=== PATIENT | female | born 1960 | race Caucasian/White ===

== ENCOUNTER → 2017-10-05 11:07 | Outpatient (POV) | payer BC, SELFPAY ==
[2017-10-05 11:45] VITALS: BP 189/82; PULSE 94; RESP 20; O2SAT 98; BMI 36.5
--- NOTE | 2017-10-05 12:36 | HMH.PAINSOAP ---
[facility] Pain Management SOAP Note Subjective:: Pleasant 87-year-old white female who are treating for chronic pain syndrome. Patient is currently medically managed with methadone 10 mg 2 pills twice a day. Patient reports pain medicine does decrease her pain up to 50-60%. Patient denies any side effects. Patient has recently had an EKG at [place] that was normal she states. Patient wanted to discuss the wean of her medications. Patient starts rehabilitation with her prosthetic leg today. Patient is currently on 100 mg gabapentin 3 times a day. From her primary care provider. She is also insulin-dependent diabetic. Patient's pain is secondary to degenerative disc disease and postlaminectomy of the lumbar spine. Patient's UDS is appropriate. Patient's Jeffrey#[id number] reviewed and appropriate. ROS General: no recent weight change, no fever, no sleep disturbances Respiratory: no cough, no shortness of air, no recurring pulmonary infections Cardiovascular/Peripheral Vascular: No chest pain, No palpitations, no edema, no shortness of breath. Gastrointestinal: no incontinence, normal bowel movements reported Genitourinary: no incontinence Musculoskeletal: Low back pain, bilateral leg pain Psychiatric: normal mood/ affect Neurological: Balance issues, weakness in right extremity, decreased sensation right leg Objective:: Physical Exam General: Alert and oriented x3, no acute distress, pleasant and cooperative, [on room air] Lungs: Resps E/U, Symmetrical chest expansion Musculoskeletal: Flexion and extension of lumbar spine somewhat guarded secondary to pain, deep tendon reflexes normal, strength in upper and lower extremities [5/5], abnormal gait noted due to left leg amputation Neurological: speech clear, maintenance director equal, and station that noted on the right lower limb Assessment:: postlaminectomy syndrome of lumbar spine, left leg amputation, degenerative disc disease lumbar spine Plan:: I discussed with Dr. Hernandez regarding patient's refills he has reviewed the chart and agrees. We will refill this patient methadone 10 mg 2 tabs p.o. twice daily give her 2 months worth. We will also take over her gabapentin and start her at 300 mg 1 p.o. 3 times daily. Jeffrey #[id number] were reviewed and appropriate. Patient's UDS appropriate. He has also had a pill count recently that was appropriate. Discussed with the patient the need for her to bring in her EKG for us to review. She understands. Follow-up with this patient in 3 months and she can hot die picker 1 in prescription in the interim. Patient has been prescribed a controlled substance after being counseled on the medication, medication safety, and possible side effects. JEFFREY report has been obtained and reviewed prior to prescription and found to be appropriate. Opioid contract was reviewed and signed by the patient, and that they have agreed to all of the terms set forth by our compliance program. This note was dictated using voice recognition software and may contain errors or omissions
--- NOTE | 2017-10-05 12:54 | P.CONS_ITS ---
[facility] Pain Management SOAP Note Subjective:: Pleasant 87-year-old white female who are treating for chronic pain syndrome. Patient is currently medically managed with methadone 10 mg 2 pills twice a day. Patient reports pain medicine does decrease her pain up to 50-60%. Patient denies any side effects. Patient has recently had an EKG at [place] that was normal she states. Patient wanted to discuss the wean of her medications. Patient starts rehabilitation with her prosthetic leg today. Patient is currently on 100 mg gabapentin 3 times a day. From her primary care provider. She is also insulin-dependent diabetic. Patient's pain is secondary to degenerative disc disease and postlaminectomy of the lumbar spine. Patient' s UDS is appropriate. Patient's Jeffrey#[id number] reviewed and appropriate. ROS General: no recent weight change, no fever, no sleep disturbances Respiratory: no cough, no shortness of air, no recurring pulmonary infections Cardiovascular/Peripheral Vascular: No chest pain, No palpitations, no edema, no shortness of breath. Gastrointestinal: no incontinence, normal bowel movements reported Genitourinary: no incontinence Musculoskeletal: Low back pain, bilateral leg pain Psychiatric: normal mood/ affect Neurological: Balance issues, weakness in right extremity, decreased sensation right leg Objective:: Physical Exam General: Alert and oriented x3, no acute distress, pleasant and cooperative, [ on room air] Lungs: Resps E/U, Symmetrical chest expansion Musculoskeletal: Flexion and extension of lumbar spine somewhat guarded secondary to pain, deep tendon reflexes normal, strength in upper and lower extremities [5/5], abnormal gait noted due to left leg amputation Neurological: speech clear, food stylist equal, and station that noted on the right lower limb Assessment:: postlaminectomy syndrome of lumbar spine, left leg amputation, degenerative disc disease lumbar spine Plan:: I discussed with Dr. Hernandez regarding patient's refills he has reviewed the chart and agrees. We will refill this patient methadone 10 mg 2 tabs p.o. twice daily give her 2 months worth. We will also take over her gabapentin and start her at 300 mg 1 p.o. 3 times daily. Jeffrey #[id number] were reviewed and appropriate. Patient's UDS appropriate. He has also had a pill count recently that was appropriate. Discussed with the patient the need for her to bring in her EKG for us to review. She understands. Follow-up with this patient in 3 months and she can picker tender helper 1 in prescription in the interim. Patient has been prescribed a controlled substance after being counseled on the medication, medication safety, and possible side effects. JEFFREY report has been obtained and reviewed prior to prescription and found to be appropriate. Opioid contract was reviewed and signed by the patient, and that they have agreed to all of the terms set forth by our compliance program. This note was dictated using voice recognition software and may contain errors or omissions
[2017-10-05 13:22] LABS: Amphetamine/Metha Screen,Urine Negative ng/mL (<1000); Barbiturates Screen,Urine Negative ng/mL (<200); Benzodiazepines Screen,Urine Negative ng/mL (200); Cannabinoid Screen,Urine Negative ng/mL (<50); Cocaine Screen,Urine Negative ng/g (<300); Methadone Screen,Urine Positive ng/mL (<300); Opiate Screen,Urine Negative ng/mL (<300); Phencyclidine Screen,Urine Negative ng/mL (<25)
--- NOTE | 2017-10-05 15:13 | PC.PHONENOTE ---
Addendum entered by Esperanza Reddy RN 10/05/17 15:20: 2 additional refills called in at this time Original Note: Rx for Gabapenting 300mg 1 tab PO TID phoned into pt pharmacy per proider order.
[2017-10-08 11:19] LABS: Opiates Negative (Cutoff=100)
--- NOTE | 2017-11-12 09:48 | PC.PHONENOTE ---
pt contacted the office to notify staff that she was released from the ER in [place] this morning after being diagnosed with a kidney stone. states that the ER physician wrote her a prescription for Percocet
== END ==
PROVIDERS: Family Provider Internal Medicine; PCP Internal Medicine; Visit Provider Clinical Nurse Specialist Family Health
DX: M96.1 Postlaminectomy syndrome, not elsewhere classified (principal)
CPT/HCPCS: 99212; 80305; 80361; 80365; G0480

== ENCOUNTER → 2017-12-08 09:38 | Outpatient (POV) | payer BC, SELFPAY ==
[2017-12-08 09:53] VITALS: BP 132/85; PULSE 87; RESP 18; TEMP 36.7; O2SAT 98; BMI 30.2
--- NOTE | 2017-12-08 10:16 | HMH.PAINSOAP ---
[facility] Pain Management SOAP Note Subjective:: Patient is a pleasant 57-year-old white female who we are treating for chronic pain syndrome. Patient currently being medically managed with methadone 10 mg 2 pills 2 times a day. Patient reports pain medicine does decrease her pain 50-60%. Patient denies any side effects. Patient has had a recent EKG prior to kidney stent. Patient states that this was normal. Patient patient has leg amputation. At last visit we discussed gabapentin 300 mg 1 p.o. 3 times daily. Patient had refills from her last provider and filled out instead. Patient is insulin-dependent diabetic. Patient's JEFFREY #[id number] reviewed. Patient has received medications from urologist. Patient was reminded that she needed to call our office every time that this occurs. I discussed with the patient the risks of taking additional medication on top of her current medication. ROS General: no recent weight change, no fever, no sleep disturbances Respiratory: no cough, no shortness of air, no recurring pulmonary infections Cardiovascular/Peripheral Vascular: No chest pain, No palpitations, no edema, no shortness of breath. Gastrointestinal: no incontinence, normal bowel movements reported Genitourinary: Urinary retention Musculoskeletal: Low back pain, bilateral leg pain Psychiatric: normal mood/ affect,, Neurological: Balance is not issues, weakness in right extremity, decreased sensation in right leg Objective:: Physical Exam General: Alert and oriented x3, no acute distress, pleasant and cooperative, [on room air] Lungs: Resps E/U, Symmetrical chest expansion Eyes: PERRL Musculoskeletal: Flexion and extension of [lumbar] spine somewhat guarded secondary to pain, deep tendon reflexes normal, strength in upper and lower extremities [5/5], and normal gait noted due to left leg amputation Neurological: speech clear, bookseamer blindstitch equal, Assessment:: Postlaminectomy syndrome of lumbar spine, left leg amputation, degenerative disc disease of the lumbar spine Plan:: We will refill the patient's medications methadone 10 mg 2 tabs p.o. twice daily and give HER-2 months worth of medications. We will also take over her gabapentin and start her at 300 mg 1 p.o. 3 times daily. Patient's JEFFREY is reviewed patient's urine drug screen has been appropriate in the past. Patient also has had a recent pill count that was correct. Dr. Hernandez has reviewed her chart and agrees with this plan of care. I will follow-up with this patient in 3 months. Patient has been prescribed a controlled substance after being counseled on the medication, medication safety, and possible side effects. JEFFREY report has been obtained and reviewed prior to prescription and found to be appropriate. Opioid contract was reviewed and signed by the patient, and that they have agreed to all of the terms set forth by our compliance program. This note was dictated using voice recognition software and may contain errors or omissions
--- NOTE | 2017-12-08 10:19 | P.CONS_ITS ---
[facility] Pain Management SOAP Note Subjective:: Patient is a pleasant 57-year-old white female who we are treating for chronic pain syndrome. Patient currently being medically managed with methadone 10 mg 2 pills 2 times a day. Patient reports pain medicine does decrease her pain 50- 60%. Patient denies any side effects. Patient has had a recent EKG prior to kidney stent. Patient states that this was normal. Patient patient has leg amputation. At last visit we discussed gabapentin 300 mg 1 p.o. 3 times daily. Patient had refills from her last provider and filled out instead. Patient is insulin-dependent diabetic. Patient's JEFFREY #[id number] reviewed. Patient has received medications from urologist. Patient was reminded that she needed to call our office every time that this occurs. I discussed with the patient the risks of taking additional medication on top of her current medication. ROS General: no recent weight change, no fever, no sleep disturbances Respiratory: no cough, no shortness of air, no recurring pulmonary infections Cardiovascular/Peripheral Vascular: No chest pain, No palpitations, no edema, no shortness of breath. Gastrointestinal: no incontinence, normal bowel movements reported Genitourinary: Urinary retention Musculoskeletal: Low back pain, bilateral leg pain Psychiatric: normal mood/ affect,, Neurological: Balance is not issues, weakness in right extremity, decreased sensation in right leg Objective:: Physical Exam General: Alert and oriented x3, no acute distress, pleasant and cooperative, [ on room air] Lungs: Resps E/U, Symmetrical chest expansion Eyes: PERRL Musculoskeletal: Flexion and extension of [lumbar] spine somewhat guarded secondary to pain, deep tendon reflexes normal, strength in upper and lower extremities [5/5], and normal gait noted due to left leg amputation Neurological: speech clear, surgical dressing maker equal, Assessment:: Postlaminectomy syndrome of lumbar spine, left leg amputation, degenerative disc disease of the lumbar spine Plan:: We will refill the patient's medications methadone 10 mg 2 tabs p.o. twice daily and give HER-2 months worth of medications. We will also take over her gabapentin and start her at 300 mg 1 p.o. 3 times daily. Patient's JEFFREY is reviewed patient's urine drug screen has been appropriate in the past. Patient also has had a recent pill count that was correct. Dr. Hernandez has reviewed her chart and agrees with this plan of care. I will follow-up with this patient in 3 months. Patient has been prescribed a controlled substance after being counseled on the medication, medication safety, and possible side effects. JEFFREY report has been obtained and reviewed prior to prescription and found to be appropriate. Opioid contract was reviewed and signed by the patient, and that they have agreed to all of the terms set forth by our compliance program. This note was dictated using voice recognition software and may contain errors or omissions
[2017-12-08 11:28] LABS: Amphetamine/Metha Screen,Urine Negative ng/mL (<1000); Barbiturates Screen,Urine Negative ng/mL (<200); Benzodiazepines Screen,Urine Negative ng/mL (200); Cannabinoid Screen,Urine Negative ng/mL (<50); Cocaine Screen,Urine Negative ng/g (<300); Methadone Screen,Urine Positive ng/mL (<300); Opiate Screen,Urine Negative ng/mL (<300); Phencyclidine Screen,Urine Negative ng/mL (<25)
[2017-12-17 14:45] LABS: Opiates Negative (Cutoff=100)
== END ==
PROVIDERS: Family Provider Internal Medicine; PCP Internal Medicine; Visit Provider Clinical Nurse Specialist Family Health
DX: G89.4 Chronic pain syndrome (principal); M51.36 Other intervertebral disc degeneration, lumbar region; Z79.899 Other long term (current) drug therapy
CPT/HCPCS: 80305; 80361; 80365; 99212; G0480

== ENCOUNTER → 2018-03-08 13:34 | Outpatient (POV) | payer BC, SELFPAY ==
[2018-03-08 13:52] VITALS: BP 149/82; PULSE 8; RESP 18; O2SAT 98; BMI 34.9
--- NOTE | 2018-03-08 14:06 | HMH.PAINSOAP ---
[facility] Pain Management SOAP Note Subjective:: Patient is a pleasant 57-year-old white female who presents today for medication refills. Patient is currently being medically managed with methadone 10 mg 2 tabs 2 times a day. Patient reports that the pain medication decreases her pain up to 70%. She denies any side effects. Patient has had a recent normal EKG. Patient was on gabapentin from her primary care physician however she is stopped taking this due to side effects. Patient is an insulin dependent diabetic. Patient Kaspar #[id number] reviewed and appropriate. Patient's UDS has been appropriate in the past. Patient continually has kidney stones. Patient is under the care of a urologist. She rates her pain a 7 out of 10 today. ROS General: no recent weight change, no fever, no sleep disturbances Respiratory: no cough, no shortness of air, no recurring pulmonary infections Cardiovascular/Peripheral Vascular: No chest pain, No palpitations, no edema, no shortness of breath. Gastrointestinal: no incontinence, normal bowel movements reported Genitourinary: no incontinence Musculoskeletal: Low back pain, bilateral leg pain Psychiatric: normal mood/ affect Neurological: [denies weakness in extremities], [denies balance issues] Objective:: Physical Exam General: Alert and oriented x3, no acute distress, pleasant and cooperative, on room air Lungs: Resps E/U, Symmetrical chest expansion, Eyes: PERRL Musculoskeletal: Flexion and extension of lumbar spine somewhat guarded secondary to pain, deep tendon reflexes normal, strength in upper and lower extremities [5/5], abnormal gait noted due to left leg amputation Neurological: speech clear, vinyl cutter equal, no gross sensory deficits Assessment:: Postlaminectomy syndrome of the lumbar spine, left leg amputation, degenerative disc disease of the lumbar spine Plan:: We will refill the patient's medication methadone 10 mg 2 caps p.o. twice daily. We will give her 2 months worth of medication. Patient's JEFFREY reviewed patient's urine drug screen has been appropriate in the past. Dr. Hernandez has reviewed her chart and agrees with this plan of care. We will continue to monitor compliance. Patient has had appropriate pill counts. We will follow-up with the patient in 3 months she can pickle water pump operator her third month in the interim. Patient has been prescribed a controlled substance after being counseled on the medication, medication safety, and possible side effects. JEFFREY report has been obtained and reviewed prior to prescription and found to be appropriate. Opioid contract was reviewed and signed by the patient, and that they have agreed to all of the terms set forth by our compliance program. This note was dictated using voice recognition software and may contain errors or omissions
--- NOTE | 2018-03-08 14:09 | P.CONS_ITS ---
[facility] Pain Management SOAP Note Subjective:: Patient is a pleasant 57-year-old white female who presents today for medication refills. Patient is currently being medically managed with methadone 10 mg 2 tabs 2 times a day. Patient reports that the pain medication decreases her pain up to 70%. She denies any side effects. Patient has had a recent normal EKG. Patient was on gabapentin from her primary care physician however she is stopped taking this due to side effects. Patient is an insulin dependent diabetic. Patient Kaspar #[id number] reviewed and appropriate. Patient 's UDS has been appropriate in the past. Patient continually has kidney stones. Patient is under the care of a urologist. She rates her pain a 7 out of 10 today. ROS General: no recent weight change, no fever, no sleep disturbances Respiratory: no cough, no shortness of air, no recurring pulmonary infections Cardiovascular/Peripheral Vascular: No chest pain, No palpitations, no edema, no shortness of breath. Gastrointestinal: no incontinence, normal bowel movements reported Genitourinary: no incontinence Musculoskeletal: Low back pain, bilateral leg pain Psychiatric: normal mood/ affect Neurological: [denies weakness in extremities], [denies balance issues] Objective:: Physical Exam General: Alert and oriented x3, no acute distress, pleasant and cooperative, on room air Lungs: Resps E/U, Symmetrical chest expansion, Eyes: PERRL Musculoskeletal: Flexion and extension of lumbar spine somewhat guarded secondary to pain, deep tendon reflexes normal, strength in upper and lower extremities [5/5], abnormal gait noted due to left leg amputation Neurological: speech clear, chief of service equal, no gross sensory deficits Assessment:: Postlaminectomy syndrome of the lumbar spine, left leg amputation, degenerative disc disease of the lumbar spine Plan:: We will refill the patient's medication methadone 10 mg 2 caps p.o. twice daily. We will give her 2 months worth of medication. Patient's JEFFREY reviewed patient's urine drug screen has been appropriate in the past. Dr. Hernandez has reviewed her chart and agrees with this plan of care. We will continue to monitor compliance. Patient has had appropriate pill counts. We will follow- up with the patient in 3 months she can picker her third month in the interim. Patient has been prescribed a controlled substance after being counseled on the medication, medication safety, and possible side effects. JEFFREY report has been obtained and reviewed prior to prescription and found to be appropriate. Opioid contract was reviewed and signed by the patient, and that they have agreed to all of the terms set forth by our compliance program. This note was dictated using voice recognition software and may contain errors or omissions
== END ==
PROVIDERS: Family Provider Internal Medicine; PCP Internal Medicine; Visit Provider Clinical Nurse Specialist Family Health
DX: M96.1 Postlaminectomy syndrome, not elsewhere classified (principal)
CPT/HCPCS: 99212

== ENCOUNTER → 2018-06-07 13:50 | Outpatient (POV) | payer BC, SELFPAY ==
[2018-06-07 14:34] VITALS: BP 157/76; PULSE 83; RESP 18; O2SAT 98; BMI 34.9
[2018-06-07 14:42] LABS: Amphetamine/Metha Screen,Urine Negative ng/mL (<1000); Barbiturates Screen,Urine Negative ng/mL (<200); Benzodiazepines Screen,Urine Negative ng/mL (<200); Cannabinoid Screen,Urine Negative ng/mL (<50); Cocaine Screen,Urine Negative ng/mL (<300); Methadone Screen,Urine Positive ng/mL (<300); Opiate Screen,Urine Negative ng/mL (<300); Phencyclidine Screen,Urine Negative ng/mL (<25)
--- NOTE | 2018-06-07 14:46 | HMH.PAINSOAP ---
[facility] Pain Management SOAP Note Subjective:: Patient is a pleasant 57-year-old white female who presents today for medication refills. Patient is currently being medically managed with methadone 10 mg 2 tabs 2 times a day. Patient did 50 side effects to the medication and states that it decreases her pain up to 70%. Patient's JEFFREY #[id number] reviewed and appropriate. Patient is under the care of a urologist. She rates her pain a 7 out of 10. Patient states that she cannot sleep well at night. Patient has not tried Lyrica. Patient is unable to take gabapentin and amitriptyline due to side effects. ROS General: no recent weight change, no fever, no sleep disturbances Respiratory: no cough, no shortness of air, no recurring pulmonary infections Cardiovascular/Peripheral Vascular: No chest pain, No palpitations, no edema, no shortness of breath. Gastrointestinal: no incontinence, normal bowel movements reported Genitourinary: no incontinence Musculoskeletal: Back pain Psychiatric: normal mood/ affect Neurological: [denies weakness in extremities], [denies balance issues] Objective:: Physical Exam General: Alert and oriented x3, no acute distress, pleasant and cooperative, [on room air] Lungs: Resps E/U, Symmetrical chest expansion, Eyes: PERRL Musculoskeletal: Flexion and extension of lumbar spine somewhat guarded secondary to pain, deep tendon reflexes normal, strength in upper and lower extremities [5/5], abnormal gait noted due to left amputation Neurological: speech clear, repair electric motor assembler equal, no gross sensory deficits Assessment:: Postlaminectomy syndrome of the lumbar spine, left leg amputation, degenerative disc disease lumbar spine Plan:: We will refill the patient's medication methadone 10 mg 2 caps p.o. twice daily we will give HER-2 months worth of the medication and she can picker and packer the third month in the interim. We will start her on Lyrica 75 mg at nighttime and see if this helps with her sleeping. I will follow-up with the patient in [address] Hernandez is reviewed this chart and agrees with this plan of care. Patient has been prescribed a controlled substance after being counseled on the medication, medication safety, and possible side effects. JEFFREY report has been obtained and reviewed prior to prescription and found to be appropriate. Opioid contract was reviewed and signed by the patient, and that they have agreed to all of the terms set forth by our compliance program. This note was dictated using voice recognition software and may contain errors or omissions
--- NOTE | 2018-06-07 14:50 | P.CONS_ITS ---
[facility] Pain Management SOAP Note Subjective:: Patient is a pleasant 57-year-old white female who presents today for medication refills. Patient is currently being medically managed with methadone 10 mg 2 tabs 2 times a day. Patient did 50 side effects to the medication and states that it decreases her pain up to 70%. Patient's JEFFREY #[id number] reviewed and appropriate. Patient is under the care of a urologist. She rates her pain a 7 out of 10. Patient states that she cannot sleep well at night. Patient has not tried Lyrica. Patient is unable to take gabapentin and amitriptyline due to side effects. ROS General: no recent weight change, no fever, no sleep disturbances Respiratory: no cough, no shortness of air, no recurring pulmonary infections Cardiovascular/Peripheral Vascular: No chest pain, No palpitations, no edema, no shortness of breath. Gastrointestinal: no incontinence, normal bowel movements reported Genitourinary: no incontinence Musculoskeletal: Back pain Psychiatric: normal mood/ affect Neurological: [denies weakness in extremities], [denies balance issues] Objective:: Physical Exam General: Alert and oriented x3, no acute distress, pleasant and cooperative, [on room air] Lungs: Resps E/U, Symmetrical chest expansion, Eyes: PERRL Musculoskeletal: Flexion and extension of lumbar spine somewhat guarded secondary to pain, deep tendon reflexes normal, strength in upper and lower extremities [5/5], abnormal gait noted due to left amputation Neurological: speech clear, security shift supervisor equal, no gross sensory deficits Assessment:: Postlaminectomy syndrome of the lumbar spine, left leg amputation, degenerative disc disease lumbar spine Plan:: We will refill the patient's medication methadone 10 mg 2 caps p.o. twice daily we will give HER-2 months worth of the medication and she can forklift picker the third month in the interim. We will start her on Lyrica 75 mg at nighttime and see if this helps with her sleeping. I will follow-up with the patient in [address] Hernandez is reviewed this chart and agrees with this plan of care. Patient has been prescribed a controlled substance after being counseled on the medication, medication safety, and possible side effects. JEFFREY report has been obtained and reviewed prior to prescription and found to be appropriate. Opioid contract was reviewed and signed by the patient, and that they have agreed to all of the terms set forth by our compliance program. This note was dictated using voice recognition software and may contain errors or omissions
[2018-06-13 17:18] LABS: Opiates Negative (Cutoff=100)
== END ==
PROVIDERS: Family Provider Internal Medicine; PCP Internal Medicine; Visit Provider Clinical Nurse Specialist Family Health
DX: M96.1 Postlaminectomy syndrome, not elsewhere classified (principal); M51.36 Other intervertebral disc degeneration, lumbar region; Z89.612 Acquired absence of left leg above knee
CPT/HCPCS: 80305; 80361; 80365; 99213; G0480

== ENCOUNTER → 2018-07-26 15:08 | Outpatient (POV) | payer BC, SELFPAY ==
[2018-07-26 15:30] VITALS: BP 159/83; PULSE 83; RESP 18; O2SAT 99; BMI 34.2
--- NOTE | 2018-07-26 15:39 | HMH.PAINSOAP ---
[facility] Pain Management SOAP Note Subjective:: She is a pleasant 58-year-old white female who presents today for follow-up after right shoulder injection. Patient states it did help her somewhat however she still having quite a bit of shoulder pain given the fact that she has to wheel her wheelchair around. Patient is being treated for pain secondary to postlaminectomy syndrome of the lumbar spine, left leg amputation with post amputation pain and degenerative disc disease lumbar spine. Patient is currently being medically managed with methadone 10 mg 2 tabs twice daily. Patient denies side effects. Jeffrey reviewed and appropriate. ROS General: no recent weight change, no fever, no sleep disturbances Respiratory: no cough, no shortness of air, no recurring pulmonary infections Cardiovascular/Peripheral Vascular: No chest pain, No palpitations, no edema, no shortness of breath. Gastrointestinal: no incontinence, normal bowel movements reported Genitourinary: no incontinence Musculoskeletal: Back pain, shoulder pain Psychiatric: normal mood/ affect Neurological: [denies weakness in extremities], [denies balance issues] Objective:: Physical Exam General: Alert and oriented x3, no acute distress, pleasant and cooperative, [on room air] Lungs: Resps E/U, Symmetrical chest expansion, Eyes: PERRL Musculoskeletal: Flexion and extension of lumbar spine somewhat guarded secondary to pain, deep tendon reflexes normal, strength in upper and lower extremities [5/5], abnormal gait noted due to left leg amputation Neurological: speech clear, process consultant equal, no gross sensory deficits Assessment:: Postlaminectomy syndrome of the lumbar spine, left leg amputation, degenerative disc disease lumbar spine, shoulder pain Plan:: We will refill the patient's methadone 10 mg 2 tablets p.o. twice daily give her 2 months worth of prescriptions. We will see her back in 2 months. [facility]. I will follow-up with her in 2 months. Patient's been instructed to call the office if she has any issues prior to her next appointment. Dr. Hernandez is reviewed this chart and agrees with this plan of care. Patient has been prescribed a controlled substance after being counseled on the medication, medication safety, and possible side effects. JEFFREY report has been obtained and reviewed prior to prescription and found to be appropriate. Opioid contract was reviewed and signed by the patient, and that they have agreed to all of the terms set forth by our compliance program. This note was dictated using voice recognition software and may contain errors or omissions
--- NOTE | 2018-07-26 15:43 | P.CONS_ITS ---
[facility] Pain Management SOAP Note Subjective:: She is a pleasant 58-year-old white female who presents today for follow-up after right shoulder injection. Patient states it did help her somewhat however she still having quite a bit of shoulder pain given the fact that she has to wheel her wheelchair around. Patient is being treated for pain secondary to postlaminectomy syndrome of the lumbar spine, left leg amputation with post amputation pain and degenerative disc disease lumbar spine. Patient is currently being medically managed with methadone 10 mg 2 tabs twice daily. Patient denies side effects. Jeffrey reviewed and appropriate. ROS General: no recent weight change, no fever, no sleep disturbances Respiratory: no cough, no shortness of air, no recurring pulmonary infections Cardiovascular/Peripheral Vascular: No chest pain, No palpitations, no edema, no shortness of breath. Gastrointestinal: no incontinence, normal bowel movements reported Genitourinary: no incontinence Musculoskeletal: Back pain, shoulder pain Psychiatric: normal mood/ affect Neurological: [denies weakness in extremities], [denies balance issues] Objective:: Physical Exam General: Alert and oriented x3, no acute distress, pleasant and cooperative, [on room air] Lungs: Resps E/U, Symmetrical chest expansion, Eyes: PERRL Musculoskeletal: Flexion and extension of lumbar spine somewhat guarded secondary to pain, deep tendon reflexes normal, strength in upper and lower extremities [5/5], abnormal gait noted due to left leg amputation Neurological: speech clear, gospel singer equal, no gross sensory deficits Assessment:: Postlaminectomy syndrome of the lumbar spine, left leg amputation, degenerative disc disease lumbar spine, shoulder pain Plan:: We will refill the patient's methadone 10 mg 2 tablets p.o. twice daily give her 2 months worth of prescriptions. We will see her back in 2 months. We will also call in [facility] for her shoulder pain. I will follow-up with her in 2 months. Patient's been instructed to call the office if she has any issues prior to her next appointment. Dr. Hernandez is reviewed this chart and agrees with this plan of care. Patient has been prescribed a controlled substance after being counseled on the medication, medication safety, and possible side effects. JEFFREY report has been obtained and reviewed prior to prescription and found to be appropriate. Opioid contract was reviewed and signed by the patient, and that they have agreed to all of the terms set forth by our compliance program. This note was dictated using voice recognition software and may contain errors or omissions
== END ==
PROVIDERS: PCP Nurse Practitioner Family; Visit Provider Clinical Nurse Specialist Family Health
DX: M96.1 Postlaminectomy syndrome, not elsewhere classified (principal); M51.36 Other intervertebral disc degeneration, lumbar region; M25.519 Pain in unspecified shoulder; Z89.612 Acquired absence of left leg above knee
CPT/HCPCS: 99213

== ENCOUNTER → 2018-11-08 13:41 | Outpatient (POV) | payer BC, SELFPAY ==
[2018-11-08 13:51] VITALS: BP 166/89; PULSE 86; RESP 18; O2SAT 98; BMI 35.7
[2018-11-08 15:22] LABS: Amphetamine/Metha Screen,Urine Negative ng/mL (<1000); Barbiturates Screen,Urine Negative ng/mL (<200); Benzodiazepines Screen,Urine Negative ng/mL (<200); Cannabinoid Screen,Urine Negative ng/mL (<50); Cocaine Screen,Urine Negative ng/mL (<300); Methadone Screen,Urine Positive ng/mL (<300); Opiate Screen,Urine Negative ng/mL (<300); Phencyclidine Screen,Urine Negative ng/mL (<25)
--- NOTE | 2018-11-09 08:33 | HMH.PAINSOAP ---
[facility] Pain Management SOAP Note Subjective:: Is a pleasant 58-year-old white female who presents today for follow-up and medication refills. Patient has recently been diagnosed with liver cancer. Patient is going to have radioactive pellets put in around her liver to help shrink the tumor in order to be put on a liver transplant list. Patient is being treated for pain secondary to postlaminectomy syndrome of the lumbar spine, left leg amputation with post amputation pain and degenerative disc disease lumbar spine along with liver cancer. She rates her pain today a 7 out of 10. Patient is currently being medically managed with methadone 10 mg 2 tabs p.o. twice daily. She denies side effects Jeffrey's reviewed and appropriate. Urine drug screens have been appropriate ROS General: no recent weight change, no fever, no sleep disturbances Respiratory: no cough, no shortness of air, no recurring pulmonary infections Cardiovascular/Peripheral Vascular: No chest pain, No palpitations, no edema, no shortness of breath. Gastrointestinal: no incontinence, normal bowel movements reported Genitourinary: no incontinence Musculoskeletal: Back pain, abdominal pain Psychiatric: normal mood/ affect, Neurological: [denies weakness in extremities], [denies balance issues] Objective:: Physical Exam General: Alert and oriented x3, no acute distress, pleasant and cooperative, [on room air] Lungs: Resps E/U, Symmetrical chest expansion, Eyes: PERRL Musculoskeletal: Flexion and extension of lumbar spine somewhat guarded secondary to pain, deep tendon reflexes normal, strength in upper and lower extremities [5/5], abnormal gait due to left leg amputation abdominal tender to palpation Neurological: speech clear, powerhouse laborer equal, no gross sensory deficits Assessment:: Postlaminectomy syndrome of the lumbar spine, left leg amputation, degenerative disc disease lumbar spine, liver cancer Plan:: We will refill the patient's methadone 10 mg 2 tabs p.o. twice daily. We will give her 2 months worth of prescriptions and we will see her back in 3 months and reassess her symptoms at that time. She can chart picker one prescription in the interim she is been instructed to call the office if she has any issues or increasing pain with chemo treatment. Patient also asked about medications from other providers during procedures. I just told her to call the office and let us know so we can document it. Patient has been prescribed a controlled substance after being counseled on the medication, medication safety, and possible side effects. JEFFREY report has been obtained and reviewed prior to prescription and found to be appropriate. Opioid contract was reviewed and signed by the patient, and that they have agreed to all of the terms set forth by our compliance program. . Dr. Hernandez has reviewed this note and agrees with this plan of care. This note was dictated using voice recognition software and may contain errors or omissions
--- NOTE | 2018-11-09 08:36 | P.CONS_ITS ---
[facility] Pain Management SOAP Note Subjective:: Is a pleasant 58-year-old white female who presents today for follow-up and medication refills. Patient has recently been diagnosed with liver cancer. Patient is going to have radioactive pellets put in around her liver to help shrink the tumor in order to be put on a liver transplant list. Patient is being treated for pain secondary to postlaminectomy syndrome of the lumbar spine, left leg amputation with post amputation pain and degenerative disc disease lumbar spine along with liver cancer. She rates her pain today a 7 out of 10. Patient is currently being medically managed with methadone 10 mg 2 tabs p.o. twice daily. She denies side effects Jeffrey's reviewed and appropriate. Urine drug screens have been appropriate ROS General: no recent weight change, no fever, no sleep disturbances Respiratory: no cough, no shortness of air, no recurring pulmonary infections Cardiovascular/Peripheral Vascular: No chest pain, No palpitations, no edema, no shortness of breath. Gastrointestinal: no incontinence, normal bowel movements reported Genitourinary: no incontinence Musculoskeletal: Back pain, abdominal pain Psychiatric: normal mood/ affect, Neurological: [denies weakness in extremities], [denies balance issues] Objective:: Physical Exam General: Alert and oriented x3, no acute distress, pleasant and cooperative, [on room air] Lungs: Resps E/U, Symmetrical chest expansion, Eyes: PERRL Musculoskeletal: Flexion and extension of lumbar spine somewhat guarded secondary to pain, deep tendon reflexes normal, strength in upper and lower extremities [5/5], abnormal gait due to left leg amputation abdominal tender to palpation Neurological: speech clear, assembler handbags equal, no gross sensory deficits Assessment:: Postlaminectomy syndrome of the lumbar spine, left leg amputation, degenerative disc disease lumbar spine, liver cancer Plan:: We will refill the patient's methadone 10 mg 2 tabs p.o. twice daily. We will give her 2 months worth of prescriptions and we will see her back in 3 months and reassess her symptoms at that time. She can tack picker one prescription in the interim she is been instructed to call the office if she has any issues or increasing pain with chemo treatment. Patient also asked about medications from other providers during procedures. I just told her to call the office and let us know so we can document it. Patient has been prescribed a controlled substance after being counseled on the medication, medication safety, and possible side effects. JEFFREY report has been obtained and reviewed prior to prescription and found to be appropriate. Opioid contract was reviewed and signed by the patient, and that they have agreed to all of the terms set forth by our compliance program. . Dr. Hernandez has reviewed this note and agrees with this plan of care. This note was dictated using voice recognition software and may contain errors or omissions
[2018-11-14 18:23] LABS: Opiates Negative (Cutoff=100)
--- NOTE | 2018-12-21 10:11 | PC.NURSE ---
LYRICA 75MG BID WITH 2 REFILLS CALLED INTO [facility] PER PROVIDER ORDER
== END ==
PROVIDERS: Visit Provider Clinical Nurse Specialist Family Health
DX: C22.8 Malignant neoplasm of liver, primary, unspecified as to type (principal); M96.1 Postlaminectomy syndrome, not elsewhere classified; M51.36 Other intervertebral disc degeneration, lumbar region; Z79.899 Other long term (current) drug therapy
CPT/HCPCS: 80305; 80361; 80365; 99213; G0480

== ENCOUNTER → 2019-02-14 14:06 | Outpatient (POV) | payer BC, SELFPAY ==
[2019-02-14 14:30] VITALS: BP 140/72; PULSE 84; RESP 18; O2SAT 99; BMI 34.9
--- NOTE | 2019-02-14 14:59 | HMH.PAINSOAP ---
[facility] Pain Management SOAP Note Subjective:: Patient is a pleasant 60-year-old white female who presents today for follow-up for medication refills. Patient has been recently diagnosed with liver cancer. She underwent radioactive pellets and experienced complications with the procedure. Patient says that she ended up being intubated for approximately 4 days long the procedure. She rates her pain a 4 out of 10 today. She is currently being managed with methadone 10 mg 1 p.o. 4 times daily and she denies any side effects to medications. Jeffrey #[id number] has been reviewed and is appropriate. Review of Systems General: No recent weight changes, no fever, no sleep disturbances Respiratory: No cough, no shortness of air, no recurring pulmonary infections Cardiovascular/peripheral vascular: No chest pain, no palpitations, no edema, no shortness of breath Gastrointestinal: No new onset incontinence, normal bowel movements reported, abdominal pain Genitourinary: No new onset incontinence Musculoskeletal: Back pain, Psychiatric: Normal mood/affect Neurological: [Denies weakness in extremities], [denies balance issues] Objective:: Physical exam General: Alert and oriented x3, no acute distress, pleasant and cooperative, [on room air] Lungs: Respirations even and unlabored, symmetrical chest expansion Eyes: PERRL Musculoskeletal: Flexion and extension of lumbar spine somewhat guarded secondary to pain, deep tendon reflexes normal, strength in upper and lower extremities [5/5], [abnormal gait noted] Neurological: Speech clear, car cooper equal, no gross sensory deficit Assessment:: Post laminectomy syndrome of the lumbar spine, left leg amputation, degenerative disc disease lumbar spine, liver cancer Plan:: We will refill the patient's methadone 10 mg 1 p.o. 4 times daily. We will give the 2 months worth of medication and she can picket labor union her third month in the interim. She is been instructed to call the office if she has any concerns prior to her next appointment. Patient has been prescribed a controlled substance after being counseled on the medication, medication safety, and possible side effects. JEFFREY report has been obtained and reviewed prior to prescription and found to be appropriate. Opioid contract was reviewed and signed by the patient, and that they have agreed to all of the terms set forth by our compliance program. Dr. Hernandez has reviewed this note and agrees with this plan of care. This note was dictated using voice recognition software and make contain errors or omissions.
--- NOTE | 2019-02-14 15:02 | P.CONS_ITS ---
[facility] Pain Management SOAP Note Subjective:: Patient is a pleasant 60-year-old white female who presents today for follow-up for medication refills. Patient has been recently diagnosed with liver cancer. She underwent radioactive pellets and experienced complications with the procedure. Patient says that she ended up being intubated for approximately 4 days long the procedure. She rates her pain a 4 out of 10 today. She is currently being managed with methadone 10 mg 1 p.o. 4 times daily and she denies any side effects to medications. Jeffrey #[id number] has been reviewed and is appropriate. Review of Systems General: No recent weight changes, no fever, no sleep disturbances Respiratory: No cough, no shortness of air, no recurring pulmonary infections Cardiovascular/peripheral vascular: No chest pain, no palpitations, no edema, no shortness of breath Gastrointestinal: No new onset incontinence, normal bowel movements reported, abdominal pain Genitourinary: No new onset incontinence Musculoskeletal: Back pain, Psychiatric: Normal mood/affect Neurological: [Denies weakness in extremities], [denies balance issues] Objective:: Physical exam General: Alert and oriented x3, no acute distress, pleasant and cooperative, [on room air] Lungs: Respirations even and unlabored, symmetrical chest expansion Eyes: PERRL Musculoskeletal: Flexion and extension of lumbar spine somewhat guarded secondary to pain, deep tendon reflexes normal, strength in upper and lower extremities [5/5], [abnormal gait noted] Neurological: Speech clear, chief jailer equal, no gross sensory deficit Assessment:: Post laminectomy syndrome of the lumbar spine, left leg amputation, degenerative disc disease lumbar spine, liver cancer Plan:: We will refill the patient's methadone 10 mg 1 p.o. 4 times daily. We will give the 2 months worth of medication and she can oyster picker her third month in the interim. She is been instructed to call the office if she has any concerns prior to her next appointment. Patient has been prescribed a controlled substance after being counseled on the medication, medication safety, and possible side effects. JEFFREY report has been obtained and reviewed prior to prescription and found to be appropriate. Opioid contract was reviewed and signed by the patient, and that they have agreed to all of the terms set forth by our compliance program. Dr. Hernandez has reviewed this note and agrees with this plan of care. This note was dictated using voice recognition software and make contain errors or omissions.
[2019-02-14 17:34] LABS: Amphetamine/Metha Screen,Urine Negative ng/mL (<1000); Barbiturates Screen,Urine Negative ng/mL (<200); Benzodiazepines Screen,Urine Negative ng/mL (<200); Cannabinoid Screen,Urine Negative ng/mL (<50); Cocaine Screen,Urine Negative ng/mL (<300); Methadone Screen,Urine Positive ng/mL (<300); Opiate Screen,Urine Negative ng/mL (<300); Phencyclidine Screen,Urine Negative ng/mL (<25)
[2019-02-20 17:09] LABS: Opiates Negative (Cutoff=100)
== END ==
PROVIDERS: Visit Provider Clinical Nurse Specialist Family Health
DX: M96.1 Postlaminectomy syndrome, not elsewhere classified (principal); M51.36 Other intervertebral disc degeneration, lumbar region; C22.8 Malignant neoplasm of liver, primary, unspecified as to type; Z89.612 Acquired absence of left leg above knee; Z79.899 Other long term (current) drug therapy
CPT/HCPCS: 80305; 80361; 80365; 99212; G0480

== ENCOUNTER → 2019-05-30 13:28 | Outpatient (POV) | payer BC, SELFPAY ==
[2019-05-30 14:13] VITALS: BP 159/85; PULSE 83; RESP 18; O2SAT 98; BMI 32.6
--- NOTE | 2019-05-31 08:50 | P.CONS_ITS ---
[facility] Pain Management SOAP Note Subjective:: Patient is a 58-year-old white female who presents today for follow-up for medication refills she is been recently diagnosed with liver cancer she is having quite a bit of difficulty with both chemotherapy and hypoglycemia. Patient has lost 35 pounds recently due to the her inability to keep food down. She rates her pain a 6 out of 10 today. She is currently being managed with methadone 10 mg 1 p.o. 4 times a day she denies any side effects from her medication. Jeffrey #[id number] reviewed and appropriate. Urine drug screens have been appropriate. ROS General: no recent weight change, no fever, no sleep disturbances Respiratory: no cough, no shortness of air, no recurring pulmonary infections Cardiovascular/Peripheral Vascular: No chest pain, No palpitations, no edema, no shortness of breath. Gastrointestinal: no new onset incontinence, normal bowel movements reported Genitourinary: no new onset incontinence Musculoskeletal: Back pain, stomach pain, generalized pain Psychiatric: normal mood/ affect, Neurological: [denies new onset weakness in extremities], [denies new onset b alance issues] Objective:: Physical Exam General: Alert and oriented x3, no acute distress, pleasant and cooperative, [on room air] Lungs: Resps E/U, Symmetrical chest expansion, Eyes: PERRL Musculoskeletal: Flexion and extension of lumbar spine somewhat guarded secondary to pain, patient has left leg amputation Neurological: speech clear, key account executive equal, no gross sensory deficits Assessment:: Liver cancer, postlaminectomy syndrome lumbar spine left leg amputation, degenerative disc disease lumbar spine Plan:: We will refill her methadone 10 mg 1 p.o. 4 times daily. We will give the patient 2 months worth of medication we will follow-up with her in 2 months reassess her symptoms at that time she is been instructed to call the office if she has any issues prior to her next appointment. Patient has been prescribed a controlled substance after being counseled on the medication, medication safety, and possible side effects. JEFFREY report has been obtained and reviewed prior to prescription and found to be appropriate. Opioid contract was reviewed and signed by the patient, and that they have agreed to all of the terms set forth by our compliance program. Dr. Hernandez has reviewed this note and agrees with this plan of care. This note was dictated using voice recognition software and may contain errors or omissions [facility] History I have reviewed the patient's past medical history: Yes Medical History: Reports:: Diabetes Mellitus Type 2, Hypertension Denies:: Cancer, Diabetes Mellitus Type 1, MRSA, Seizures *Have you ever received a pneumonia vaccine?: Yes *Have you received a flu vaccine this season?: Yes Other Medical History: Denies: Blood Transfusion Reaction Laterality Cases: Left: Arthroscopy Shoulder, Bilateral: Arthroscopy Knee Other Surgeries: Yes: Amputation: Yes (left bka) - *Social History Smoking Status: Never smoker Alcohol Intake: never *Occupational Status:: other Housing: house Household Members: children *Travel in the last 8 weeks: None Family Hx:: Unable to obtain
== END ==
PROVIDERS: Visit Provider Clinical Nurse Specialist Family Health
DX: C22.8 Malignant neoplasm of liver, primary, unspecified as to type (principal); M96.1 Postlaminectomy syndrome, not elsewhere classified; M51.36 Other intervertebral disc degeneration, lumbar region; Z89.612 Acquired absence of left leg above knee
CPT/HCPCS: 36415; 80307; 80356; 80361; 99212; G0480

== ENCOUNTER → 2019-06-13 09:53 | Outpatient (POV) | payer BC, SELFPAY ==
[2019-06-13 10:10] VITALS: BP 137/79; PULSE 91; RESP 18; O2SAT 98; BMI 32.6
--- NOTE | 2019-06-13 10:46 | HMH.PAINSOAP ---
[facility] Pain Management SOAP Note Subjective:: Patient is a pleasant 58-year-old white female who presents today for follow-up. Patient was seen 2 weeks ago however since then she has had extreme pain and sending her to the ER. Patient is being worked up for gallbladder. Patient is unable to keep food down. She rates her pain today a 7 out of 10. She is currently on methadone 10 mg 1 p.o. 4 times a day. She is also actively going through chemotherapy. [facility] #[id number] reviewed and appropriate. ROS General: no recent weight change, no fever, no sleep disturbances Respiratory: no cough, no shortness of air, no recurring pulmonary infections Cardiovascular/Peripheral Vascular: No chest pain, No palpitations, no edema, no shortness of breath. Gastrointestinal: no new onset incontinence, normal bowel movements reported Genitourinary: no new onset incontinence Musculoskeletal: Back pain, stomach pain Psychiatric: normal mood/ affect Neurological: [denies new onset weakness in extremities], [denies new onset balance issues] Objective:: Physical Exam General: Alert and oriented x3, no acute distress, pleasant and cooperative, [on room air] Lungs: Resps E/U, Symmetrical chest expansion, Eyes: PERRL Musculoskeletal: Flexion and extension of lumbar spine somewhat guarded secondary to pain Neurological: speech clear, detective investigator equal, no gross sensory deficits Assessment:: Liver cancer, 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 She has a CT scan of her gallbladder on the fifth. I will see her back after this reassess her symptoms at that time. Dr. Hernandez has reviewed this note and agrees with this plan of care. This note was dictated using voice recognition software and may contain errors or omissions [facility] History I have reviewed the patient's past medical history: Yes Medical History: Reports:: Diabetes Mellitus Type 2, Hypertension Denies:: Cancer, Diabetes Mellitus Type 1, MRSA, Seizures *Have you ever received a pneumonia vaccine?: Yes *Have you received a flu vaccine this season?: Yes Other Medical History: Denies: Blood Transfusion Reaction Laterality Cases: Left: Arthroscopy Shoulder, Bilateral: Arthroscopy Knee Other Surgeries: Yes: Amputation: Yes (left bka) - *Social History Smoking Status: Never smoker Alcohol Intake: never *Occupational Status:: other Housing: house Household Members: children *Travel in the last 8 weeks: None Family Hx:: Unable to obtain
--- NOTE | 2019-06-13 10:50 | P.CONS_ITS ---
[facility] Pain Management SOAP Note Subjective:: Patient is a pleasant 58-year-old white female who presents today for follow-up. Patient was seen 2 weeks ago however since then she has had extreme pain and sending her to the ER. Patient is being worked up for gallbladder. Patient is unable to keep food down. She rates her pain today a 7 out of 10. She is currently on methadone 10 mg 1 p.o. 4 times a day. She is also actively going through chemotherapy. [facility] #[id number] reviewed and appropriate. ROS General: no recent weight change, no fever, no sleep disturbances Respiratory: no cough, no shortness of air, no recurring pulmonary infections Cardiovascular/Peripheral Vascular: No chest pain, No palpitations, no edema, no shortness of breath. Gastrointestinal: no new onset incontinence, normal bowel movements reported Genitourinary: no new onset incontinence Musculoskeletal: Back pain, stomach pain Psychiatric: normal mood/ affect Neurological: [denies new onset weakness in extremities], [denies new onset balance issues] Objective:: Physical Exam General: Alert and oriented x3, no acute distress, pleasant and cooperative, [on room air] Lungs: Resps E/U, Symmetrical chest expansion, Eyes: PERRL Musculoskeletal: Flexion and extension of lumbar spine somewhat guarded secondary to pain Neurological: speech clear, pasting inspector equal, no gross sensory deficits Assessment:: Liver cancer, 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 She has a CT scan of her gallbladder on the fifth. I will see her back after this reassess her symptoms at that time. Dr. Hernandez has reviewed this note and agrees with this plan of care. This note was dictated using voice recognition software and may contain errors or omissions [facility] History I have reviewed the patient's past medical history: Yes Medical History: Reports:: Diabetes Mellitus Type 2, Hypertension Denies:: Cancer, Diabetes Mellitus Type 1, MRSA, Seizures *Have you ever received a pneumonia vaccine?: Yes *Have you received a flu vaccine this season?: Yes Other Medical History: Denies: Blood Transfusion Reaction Laterality Cases: Left: Arthroscopy Shoulder, Bilateral: Arthroscopy Knee Other Surgeries: Yes: Amputation: Yes (left bka) - *Social History Smoking Status: Never smoker Alcohol Intake: never *Occupational Status:: other Housing: house Household Members: children *Travel in the last 8 weeks: None Family Hx:: Unable to obtain
== END ==
PROVIDERS: Visit Provider Clinical Nurse Specialist Family Health
DX: C22.9 Malignant neoplasm of liver, not specified as primary or secondary (principal); M96.1 Postlaminectomy syndrome, not elsewhere classified; M51.36 Other intervertebral disc degeneration, lumbar region; Z89.619 Acquired absence of unspecified leg above knee
CPT/HCPCS: 99212

== ENCOUNTER → 2019-06-27 14:50 | Outpatient (POV) | payer BC, SELFPAY ==
[2019-06-27 15:04] VITALS: BP 153/84; PULSE 82; RESP 18; O2SAT 98; BMI 21.2
--- NOTE | 2019-06-28 08:44 | P.CONS_ITS ---
[facility] Pain Management SOAP Note Subjective:: Patient is a pleasant 59-year-old white female who presents today for follow-up. Patient did have a CT scan which showed that her gallbladder is compromised however due to her liver cancer they are concerned in regards to taking it out that it would increase the likelihood of her cancer spreading. Patient is continuing chemotherapy. Patient stated that methadone 10 mg 1 p.o. 5 times a day was very beneficial for her I discussed with her that during her chemotherapy that we can increase this after I spoke with Dr. Hernandez in regards to this. Patient rates her pain today 7 out of 10. Jeffrey #[id number] reviewed and appropriate. ROS General: no recent weight change, no fever, no sleep disturbances Respiratory: no cough, no shortness of air, no recurring pulmonary infections Cardiovascular/Peripheral Vascular: No chest pain, No palpitations, no edema, no shortness of breath. Gastrointestinal: no new onset incontinence, normal bowel movements reported Genitourinary: no new onset incontinence Musculoskeletal: Back pain, abdominal pain Psychiatric: normal mood/ affect Neurological: [denies new onset weakness in extremities], [denies new onset balance issues] Objective:: Physical Exam General: Alert and oriented x3, no acute distress, pleasant and cooperative, [on room air] Lungs: Resps E/U, Symmetrical chest expansion, Eyes: PERRL Musculoskeletal: Flexion and extension of bar spine somewhat guarded secondary to pain, deep tendon reflexes normal, patient has amputation of left lower extremity below the knee strength in upper and lower extremities [4/5] Neurological: speech clear, systems technician equal, no gross sensory deficits Assessment:: Liver cancer, post laminectomy syndrome lumbar spine with leg amputation, degenerative disc disease lumbar spine Plan:: We will refill her methadone 10 mg 1 p.o. 5 times a day give her 2 months worth of medication see her back in 3 months she can picker / packer 1 month in the interim. Patient's been instructed to call the office if she has any issues prior to her next appointment. Patient has been prescribed a controlled substance after being counseled on the medication, medication safety, and possible side effects. JEFFREY report has been obtained and reviewed prior to prescription and found to be appropriate. Opioid contract was reviewed and signed by the patient, and that they have agreed to all of the terms set forth by our compliance program.. Dr. Hernandez has reviewed this note and agrees with this plan of care. This note was dictated using voice recognition software and may contain errors or omissions [facility] History I have reviewed the patient's past medical history: Yes Medical History: Reports:: Diabetes Mellitus Type 2, Hypertension Denies:: Cancer, Diabetes Mellitus Type 1, MRSA, Seizures *Have you ever received a pneumonia vaccine?: Yes *Have you received a flu vaccine this season?: Yes Other Medical History: Denies: Blood Transfusion Reaction Laterality Cases: Left: Arthroscopy Shoulder, Bilateral: Arthroscopy Knee Other Surgeries: Yes: Amputation: Yes (left bka) - *Social History Smoking Status: Never smoker Alcohol Intake: never *Occupational Status:: other Housing: house Household Members: children *Travel in the last 8 weeks: None Family Hx:: Unable to obtain
== END ==
PROVIDERS: PCP Student in an Organized Health Care Education/Training Program; Visit Provider Clinical Nurse Specialist Family Health
DX: C22.8 Malignant neoplasm of liver, primary, unspecified as to type (principal); M96.1 Postlaminectomy syndrome, not elsewhere classified; M51.36 Other intervertebral disc degeneration, lumbar region; Z89.512 Acquired absence of left leg below knee
CPT/HCPCS: 99212

== ENCOUNTER → 2019-09-05 09:27 | Outpatient (POV) | payer BC, SELFPAY ==
[2019-09-05 10:02] VITALS: BP 166/91; PULSE 81; RESP 18; O2SAT 98; BMI 32.2
--- NOTE | 2019-09-05 12:53 | P.CONS_ITS ---
[facility] Pain Management SOAP Note Subjective:: Patient is a pleasant 59-year-old white female who presents today for follow-up. Patient rates her pain today a 7 out of 10 she has liver cancer and is currently doing chemotherapy. She is on methadone 10 mg 1 p.o. 5 times a day. She states that it is beneficial for her. Patient Jeffrey #[id number] reviewed and appropriate. Urine drug screens have been appropriate. Patient is also being treated for gastroparesis and gallbladder problems. ROS General: no recent weight change, no fever, no sleep disturbances Respiratory: no cough, no shortness of air, no recurring pulmonary infections Cardiovascular/Peripheral Vascular: No chest pain, No palpitations, no edema, no shortness of breath. Gastrointestinal: no new onset incontinence, normal bowel movements reported Genitourinary: no new onset incontinence Musculoskeletal: Back pain, abdominal pain Psychiatric: normal mood/ affect Neurological: [denies new onset weakness in extremities], [denies new onset balance issues] Objective:: Physical Exam General: Alert and oriented x3, no acute distress, pleasant and cooperative, [on room air] Lungs: Resps E/U, Symmetrical chest expansion, Eyes: PERRL Musculoskeletal: Flexion and extension of lumbar spine somewhat guarded secondary to pain, deep tendon reflexes normal, strength in upper and lower extremities [5/5], patient has amputation of left leg Neurological: speech clear, live source operator equal, no gross sensory deficits Assessment:: Degenerative disc disease lumbar spine, postlaminectomy syndrome lumbar spine, leg amputation, liver cancer Plan:: We will refill the patient's methadone 10 mg 1 p.o. 5 times a day we will see her back in 2 months reassess her symptoms at that time she is been instructed to call the office if she has any issues prior to her next appointment. Dr. Hernandez has reviewed this note and agrees with this plan of care. This note was dictated using voice recognition software and may contain errors or omissions Patient has been prescribed a controlled substance after being counseled on the medication, medication safety, and possible side effects. JEFFREY report has been obtained and reviewed prior to prescription and found to be appropriate. Opioid contract was reviewed and signed by the patient, and that they have agreed to all of the terms set forth by our compliance program. [facility] History I have reviewed the patient's past medical history: Yes Medical History: Reports:: Diabetes Mellitus Type 2, Hypertension Denies:: Cancer, Diabetes Mellitus Type 1, MRSA, Seizures *Have you ever received a pneumonia vaccine?: Yes *Have you received a flu vaccine this season?: Yes Other Medical History: Denies: Blood Transfusion Reaction Laterality Cases: Left: Arthroscopy Shoulder, Bilateral: Arthroscopy Knee Other Surgeries: Yes: Amputation: Yes (left bka) - *Social History Smoking Status: Never smoker Alcohol Intake: never *Occupational Status:: other Housing: house Household Members: children *Travel in the last 8 weeks: None Family Hx:: Unable to obtain
== END ==
PROVIDERS: Visit Provider Clinical Nurse Specialist Family Health
DX: M51.36 Other intervertebral disc degeneration, lumbar region (principal); M96.1 Postlaminectomy syndrome, not elsewhere classified; C22.9 Malignant neoplasm of liver, not specified as primary or secondary; E11.9 Type 2 diabetes mellitus without complications; I10 Essential (primary) hypertension; Z89.512 Acquired absence of left leg below knee
CPT/HCPCS: 99212

== ENCOUNTER → 2019-11-28 12:04 | Outpatient (POV) | payer BC, SELFPAY ==
--- NOTE | 2019-11-28 12:32 | HMH.AUDIO ---
Audio Check In - Consent Consent for phone encounter:: With the recent concerns about the COVID-19, we are trying to minimize exposure to you by shifting to telehealth appointments whenever possible. It restricts me from seeing you in person, but the trade off is protecting you during this pandemic. Can you hear me okay, and do you consent to this option? If not, I would be happy to see if we can reschedule your appointment in the future, when feasible. Did the patient consent to virtual visit?: Yes Did the patient initiate this encounter?: Yes Is this audio check in related to the patient visit in the: Yes - Discussion Discussion:: This encounter was performed as a audio visit via secure 2 way audio to minimize risk and transmission of Covid-19. The patient and we understand the limitations of a audio visit including inability to check reflexes, possibly missing subtle findings on physical exam. Alternative options were presented to the patient and the patient elected to proceed with the visit. We specifically discussed risk factors for Covid-19 including age, heart or lung disease, diabetes, immunosuppression and travel. We also discussed that NSAIDs may worsen Covid-19 infection symptoms and that they should not be used to treat Covid-19 symptoms. Patient was also informed that corticosteroids in any form oral or injectable will decrease immune response and may increase risk of Covid-19 infections and symptoms. Patient is a pleasant 59-year-old white female who presents today for follow-up and medication refills. Patient has recently begun chemotherapy again. Her cancer seems to have spread both to her ribs and in her lungs. Overall patient is having quite a bit of pain due to the chemo rating her pain an 8 out of 10. She is currently on methadone 10 mg 1 p.o. 5 times a day. Patient and I discussed potentially changing her regimen however I would like to see notes from her oncologist. She is going to arrange this. Her urine drug screens have been appropriate her Jeffrey #[id number] reviewed and appropriate. ROS General: no recent weight change, no fever, no sleep disturbances Respiratory: no cough, no shortness of air, no recurring pulmonary infections Cardiovascular/Peripheral Vascular: No chest pain, No palpitations, no edema, no shortness of breath. Gastrointestinal: no new onset incontinence, normal bowel movements reported Genitourinary: no new onset incontinence Musculoskeletal: Generalized pain, abdominal pain Psychiatric: normal mood/ affect Neurological: [denies new onset weakness in extremities], [denies new onset balance issues] Physical exam: Constitutional: alert, in no acute distress Psychiatric: Judgment and insight intact, Alert and oriented x4 Mood and affect: Mood normal, affect appropriate Respiratory: Breathing nonlabored, nondyspneic Neurologic: Sensation grossly intact per patient Assessment: Degenerative disc disease lumbar spine, with postlaminectomy syndrome lumbar spine, leg amputation, liver cancer with metastasis to ribs and lungs Plan and disposition: At this time we will continue with her methadone 10 mg 1 p.o. 5 times a day give her 1 months worth of medication she is going to retrieve notes from her oncologist we will reexamine her medication regimen at her next visit. She has been instructed to call the office if she has any issues prior to her next appointment. Patient has been prescribed a controlled substance after being counseled on the medication, medication safety, and possible side effects. JEFFREY report has been obtained and reviewed prior to prescription and found to be appropriate. Opioid contract was reviewed and signed by the patient, and that they have agreed to all of the terms set forth by our compliance program. Dr. Hernandez has reviewed this note and agrees with this plan of care. This note was dictated using voice recognition software and may contain errors or omissions - Length
== END ==
PROVIDERS: Visit Provider Clinical Nurse Specialist Family Health
DX: M51.36 Other intervertebral disc degeneration, lumbar region (principal); M96.1 Postlaminectomy syndrome, not elsewhere classified; C22.9 Malignant neoplasm of liver, not specified as primary or secondary; I10 Essential (primary) hypertension; E11.9 Type 2 diabetes mellitus without complications; Z89.512 Acquired absence of left leg below knee
CPT/HCPCS: 99441; G2012

== ENCOUNTER → 2020-01-24 09:06 | Outpatient (POV) | payer BC, SELFPAY ==
--- NOTE | 2020-01-24 15:15 | HMH.VVPMSO ---
[facility] PM Virtual Visit SOAP Consent for virtual visit:: With the recent concerns about the COVID-19, we are trying to minimize exposure to you by shifting to telehealth appointments whenever possible. It restricts me from seeing you in person, but the trade off is protecting you during this pandemic. Can you see and hear me okay, and do you consent to this option? If not, I would be happy to see if we can reschedule your appointment in the future, when feasible. Has patient consented to this virtual visit?: Yes Subjective:: Patient is a pleasant 59-year-old white female who presents today for consultation via telehealth. Patient has been outpatient for quite some time we took over medication management for Dr. Mullins, who is prescribing methadone to the patient. Patient has been compliant with care however she has been diagnosed with cancer and has begun chemo treatments. She has pain constantly she states is worse at nighttime she rates it an 8 out of 10. She states she is quite uncomfortable. I discussed with her the need for notes in regards to her cancer treatment. Her Emmanuel has been reviewed. She is currently on methadone 10 mg 1 tab p.o. 5 times a day. ROS General: no recent weight change, no fever, no sleep disturbances Respiratory: no cough, no shortness of air, no recurring pulmonary infections Cardiovascular/Peripheral Vascular: No chest pain, No palpitations, no edema, no shortness of breath. Gastrointestinal: no new onset incontinence, normal bowel movements reported Genitourinary: no new onset incontinence Musculoskeletal: Generalized pain Psychiatric: normal mood/ affect Neurological: [denies new onset weakness in extremities], [denies new onset balance issues] Objective:: Physical exam: Constitutional: Healthy appearing, well-developed, alert, in no acute distress Psychiatric: Judgment and insight intact, Alert and oriented x4 Mood and affect: Mood normal, affect appropriate Head and face: Inspection: Normocephalic atraumatic, extraocular movement intact Respiratory: Breathing nonlabored, nondyspneic Cardiovascular: No cyanosis, clubbing, or edema observed Skin: Head and neck: Skin with no lesions or rash observed Gait: Unable to walk due to amputations Neurologic: Sensation grossly intact per patient Musculoskeletal: Decreased range of motion lumbar spine Assessment:: degenerative disc disease lumbar spine with postlaminectomy syndrome leg amputation liver cancer with metastasis to ribs and lungs Plan:: I spoke with Dr. Hernandez in regards to her treatment moving forward he will assist her on Thursday and determine the best plan of care. We will call the patient and let her know of her appointment. This encounter was performed as a telemedicine visit via secure 2 [address] video and audio to minimize risk and transmission of Covid-19. The patient and we understand the limitations of a telemedicine visit including inability to check reflexes, possibly missing subtle findings on physical exam. Alternative options were presented to the patient and the patient elected to proceed with the visit. We specifically discussed risk factors for Covid-19 including age, heart or lung disease, diabetes, immunosuppression and travel. We also discussed that NSAIDs may worsen Covid-19 infection symptoms and that they should not be used to treat Covid-19 symptoms. Patient was also informed that corticosteroids in any form oral or injectable will decrease immune response and may increase risk of Covid-[address] Hernandez has reviewed this patient's chart and this note and agrees with plan of care. Patient has been instructed to call the office if they have any issues prior to the next appointment. Time In:: 09:20 Time Out:: 09:[address] [facility] History I have reviewed the patient's past medical history: Yes Medical History: Reports:: Diabetes Mellitus Type 2, Hypertension Denies:: Cancer, Diabetes Mellitus Type 1, MRSA, Seizur
== END ==
PROVIDERS: Visit Provider Clinical Nurse Specialist Family Health
DX: M51.36 Other intervertebral disc degeneration, lumbar region (principal); M96.1 Postlaminectomy syndrome, not elsewhere classified; D02.20 Carcinoma in situ of unspecified bronchus and lung; C22.9 Malignant neoplasm of liver, not specified as primary or secondary; Z89.512 Acquired absence of left leg below knee; I10 Essential (primary) hypertension; E11.9 Type 2 diabetes mellitus without complications
CPT/HCPCS: 99212

== ENCOUNTER → 2020-01-27 13:40 | Outpatient (POV) | payer BC, SELFPAY ==
[2020-01-27 13:51] VITALS: BP 165/91; PULSE 96; RESP 18; TEMP 36.5; O2SAT 97; BMI 32.6
--- NOTE | 2020-01-27 14:27 | HMH.PAINSOAP ---
[facility] Pain Management SOAP Note Subjective:: The patient is a pleasant 59-year-old white female who we have been treating for low back pain with lumbar radicular symptoms. She currently has metastatic liver carcinoma with mets to her ribs and to the spine. She is currently undergoing treatment at [facility]. She is on methadone 10 mg 1 tablet 5 times a day to help her with her chronic low back pain. She is starting to have some increasing pain especially with her recent chemo treatments and radiation therapy. She is here to discuss alternative pain treatment regimens. Objective:: Alert and oriented x3 no acute distress. She has a left BKA so she is seen in a wheelchair. Motor strength of the upper and lower extremities is 5/5. There is no gross sensory deficit. She does have some tenderness over the lower lumbar spine. Assessment:: Degenerative disc disease of lumbar spine with lumbar radiculopathy symptoms with new diagnosis of metastatic liver carcinoma with mets to the ribs and to the spine. Currently undergoing chemotherapy and radiation treatment Plan:: She is currently on methadone 10 mg 1 tablet 5 times a day. She does do well with narcotics. I believe she would be a candidate for an intrathecal bupivacaine pain pump to help control her pain symptoms. We will seek approval and plan on permanent placement of an intrathecal bupivacaine pump. We will seek approval from her oncologist and primary care physician prior to proceeding. This will be with intrathecal bupivacaine 2.5 mg a day with concentration of 5 mg/mL. [facility] History I have reviewed the patient's past medical history: Yes Medical History: Reports:: Diabetes Mellitus Type 2, Hypertension Denies:: Cancer, Diabetes Mellitus Type 1, MRSA, Seizures *Have you ever received a pneumonia vaccine?: No *Have you received a flu vaccine this season?: Yes Other Medical History: Denies: Blood Transfusion Reaction Laterality Cases: Left: Arthroscopy Shoulder, Bilateral: Arthroscopy Knee Other Surgeries: Yes: Amputation: Yes (left bka) - *Social History Smoking Status: Never smoker Alcohol Intake: never *Occupational Status:: disabled Housing: house Household Members: children *Travel in the last 8 weeks: None Family Hx:: Unable to obtain
== END ==
PROVIDERS: Visit Provider Anesthesiology
DX: M51.16 Intervertebral disc disorders with radiculopathy, lumbar region (principal); C22.9 Malignant neoplasm of liver, not specified as primary or secondary; D02.20 Carcinoma in situ of unspecified bronchus and lung
CPT/HCPCS: 99212

== ENCOUNTER → 2020-03-05 09:14 | Outpatient (POV) | payer BC, SELFPAY ==
[2020-03-05 10:26] VITALS: BP 142/88; PULSE 74; RESP 18; TEMP 36.3; O2SAT 98; BMI 33.4
--- NOTE | 2020-03-05 11:07 | HMH.PAINSOAP ---
[facility] Pain Management SOAP Note Subjective:: Patient is a 59-year-old white female who presents today for follow-up. She has a longstanding history of chronic comorbidities. Patient is being treated in our clinic for degenerative disc disease lumbar spine with lumbar radiculopathy symptoms and new diagnosis metastatic liver carcinoma with mets to the ribs and to the spine. Patient is currently undergoing chemotherapy and radiation. She had a spinal cord letter in the past for left leg pain. Patient says she had peripheral neuropathy to her left leg. She says that due to osteomyelitis, her left leg was amputated below the knee. As result, she says that the stimulator was not effective any longer and she had the stimulator removed. She does say that she has discussed possible intrathecal therapy with Dr. Hernandez in the past. She and he discussed a possible bupivacaine pump. She is currently on methadone 10 mg 1 tablet p.o. times daily. She denies any side effects to the medicine. Her Emmanuel #[id number] has been reviewed and is appropriate along with her urine drug screens. Her morphine equivalent is 150. Patient would like to proceed with intrathecal therapy. She and I did discuss today a wound that she does have on her right great toe. She understands that she would need to be free of any type of infection and all wounds must be healed before proceeding with any type of implanted device. She has been followed in the past with [facility] wound care [place] for nonhealing wounds. She and I did discuss a concern for healing following any type of implanted device. She does report that she healed without any complications with her stimulator in the past. Patient does rate her pain an 8 out of 10. It is mostly in her low back today. Review of Systems General: No recent weight changes, no fever, no sleep disturbances Respiratory: No cough, no shortness of air, no recurring pulmonary infections Cardiovascular/peripheral vascular: No chest pain, no palpitations, no edema, no shortness of breath Gastrointestinal: No new onset incontinence, normal bowel movements reported Genitourinary: No new onset incontinence Musculoskeletal: Low back pain Psychiatric: Normal mood/affect Neurological: [Denies weakness in extremities], [denies balance issues] Objective:: Physical exam General: Alert and oriented x3, no acute distress, pleasant and cooperative, [on room air] Lungs: Respirations even and unlabored, symmetrical chest expansion Eyes: PERRL Musculoskeletal: Flexion and extension of lumbar spine somewhat guarded secondary to pain, deep tendon reflexes normal, strength in upper and lower extremities [5/5], [abnormal gait noted] Neurological: Speech clear, vortex operator equal, no gross sensory deficit Assessment:: Degenerative disc disease lumbar spine with lumbar radiculopathy symptoms, new diagnosis metastatic liver carcinoma with mets to the ribs into the spine Plan:: We will refer the patient back to [facility] wound care. I did explain to the patient that she will need to follow-up with her primary care provider concerning the area on her right great toe. She understands that they will need to continue care for her regarding the wound. We will also schedule her for psychological evaluation to determine if the patient is an appropriate candidate for an intrathecal pump. We will see her back in the clinic afterwards to reassess her symptoms. She has been instructed to contact the clinic if she has any concerns before next appointment. The patient and I specifically discussed risk factors for COVID19. These risks include, but are not limited to age greater than 60, heart or lung disease, diabetes, immunosuppression, and travel. We also discussed NSAIDs may worsen COVID19 infection or symptoms. Patient should not use NSAIDs to treat COVID19 signs or symptoms. Patient was also informed that any type of corticosteroid of any form (ora
== END ==
PROVIDERS: Visit Provider Clinical Nurse Specialist Family Health
DX: M51.16 Intervertebral disc disorders with radiculopathy, lumbar region (principal)
CPT/HCPCS: 99212

== ENCOUNTER → 2020-06-04 10:18 | Outpatient (POV) | payer BC, SELFPAY ==
[2020-06-04 11:18] VITALS: BP 125/85; PULSE 85; RESP 18; O2SAT 98; BMI 33.4
--- NOTE | 2020-06-04 14:33 | HMH.PAINSOAP ---
[facility] Pain Management SOAP Note Subjective:: Patient is a pleasant 59-year-old white female who presents today for follow-up. Patient is currently being treated for pain secondary to degenerative disc disease lumbar spine lumbar radiculopathy symptoms, metastatic liver carcinoma with mets to the ribs and the spine. She is undergoing chemotherapy and radiation for this. Patient also has peripheral neuropathy she has had a left leg amputation due to osteomyelitis. She also has an open wound on her right foot. She is currently on methadone 10 mg 1 tab p.o. 5 times a day. Her morphine equivalent is 150. Patient and I talked about an updated EKG she has had one in [place] we will get records of this. Patient and I had discussed intrathecal therapy however at this time she is not a candidate due to the current infection in her leg along with other comorbidities. She rates her pain today a 6 out of 10. She states she is doing well with her current medication regimen ROS General: no recent weight change, no fever, no sleep disturbances Respiratory: no cough, no shortness of air, no recurring pulmonary infections Cardiovascular/Peripheral Vascular: No chest pain, No palpitations, no edema, no shortness of breath. Gastrointestinal: no new onset incontinence, normal bowel movements reported Genitourinary: no new onset incontinence Musculoskeletal: Back pain, leg pain, abdominal pain Psychiatric: normal mood/ affect, Neurological: [denies new onset weakness in extremities], [denies new onset balance issues] Objective:: Physical Exam General: Alert and oriented x3, no acute distress, pleasant and cooperative, [on room air] Lungs: Resps E/U, Symmetrical chest expansion, Eyes: PERRL Musculoskeletal: Flexion and extension of lumbar spine somewhat guarded secondary to pain, deep tendon reflexes normal, strength in upper and lower extremities [4/5], utilizes wheelchair for transportation patient does have left below the knee amputation Neurological: speech clear, food and beverage lead equal, no gross sensory deficits Assessment:: Degenerative disc disease lumbar spine with lumbar radiculopathy symptoms, metastatic liver carcinoma with mets to the ribs and the spine Plan:: We will continue her methadone 10 mg 5 times a day we will give her 2 months worth of medication. We will see her back in 3 months reassess her symptoms at that time she has been instructed to call the office if she has any issues prior to her next appointment. She can crop picker 1 prescription in the interim. Dr. Hernandez has reviewed this note and agrees with this plan of care. This note was dictated using voice recognition software and may contain errors or omissions Patient has been prescribed a controlled substance after being counseled on the medication, medication safety, and possible side effects. JEFFREY report has been obtained and reviewed prior to prescription and found to be appropriate. Opioid contract was reviewed and signed by the patient, and that they have agreed to all of the terms set forth by our compliance program. [facility] History I have reviewed the patient's past medical history: Yes Medical History: Reports:: Diabetes Mellitus Type 2, Hypertension Denies:: Cancer, Diabetes Mellitus Type 1, MRSA, Seizures *Have you ever received a pneumonia vaccine?: Yes *Have you received a flu vaccine this season?: Yes Other Medical History: Denies: Blood Transfusion Reaction Laterality Cases: Left: Arthroscopy Shoulder, Bilateral: Arthroscopy Knee Other Surgeries: Yes: Amputation: Yes (left bka) - *Social History Smoking Status: Never smoker Alcohol Intake: never *Occupational Status:: other Housing: house Household Members: children *Travel in the last 8 weeks: None Family Hx:: Unable to obtain
== END ==
PROVIDERS: Visit Provider Clinical Nurse Specialist Family Health
DX: M51.16 Intervertebral disc disorders with radiculopathy, lumbar region (principal); C78.7 Secondary malignant neoplasm of liver and intrahepatic bile duct; C79.51 Secondary malignant neoplasm of bone
CPT/HCPCS: 99212

== ENCOUNTER → 2020-08-27 11:22 | Outpatient (POV) | payer BC, SELFPAY ==
--- NOTE | 2020-08-27 12:18 | P.CONS_ITS ---
[facility] Pain Management SOAP Note Subjective:: Patient is a pleasant 60-year-old white female who presents today for follow-up. She is currently being treated for pain secondary to degenerative disc disease lumbar spine lumbar radiculopathy symptoms of metastatic liver carcinoma with mets to the ribs and spine. She is undergoing chemotherapy and radiation for this. She also has peripheral neuropathy she has had a left leg amputation due to osteomyelitis. Patient has an open wound on her right foot. She is currently on methadone 10 mg 1 tab p.o. 5 times a day her morphine equivalent is 150. Patient and I had talked about her needs in regards to pain management. Her oncologist in test notes. We discussed as a first line of measures to help with her pain we would increase her methadone back up to 6 times a day. Patient's Jeffrey #[id number] reviewed and appropriate. Patient rates her pain an 8 out of 10 today. ROS General: no recent weight change, no fever, no sleep disturbances Respiratory: no cough, no shortness of air, no recurring pulmonary infections Cardiovascular/Peripheral Vascular: No chest pain, No palpitations, no edema, no shortness of breath. Gastrointestinal: no new onset incontinence, normal bowel movements reported Genitourinary: no new onset incontinence Musculoskeletal: Back pain, leg pain, abdominal pain Psychiatric: normal mood/ affect Neurological: [denies new onset weakness in extremities], [denies new onset balance issues] Objective:: Physical Exam General: Alert and oriented x3, no acute distress, pleasant and cooperative, [on room air] Lungs: Resps E/U, Symmetrical chest expansion, Eyes: PERRL Musculoskeletal: Flexion and extension of lumbar spine somewhat guarded secondary to pain, deep tendon reflexes normal, strength in upper and lower extremities [4/5], utilizes wheelchair for mobility Neurological: speech clear, ar manager equal, no gross sensory deficits Assessment:: Degenerative disc disease lumbar spine lumbar radiculopathy symptoms metastatic liver carcinoma with mets to the ribs and spine Plan:: We will increase her methadone to 10 mg 1 p.o. 6 times a day. I will follow-up with her in 2 months after this reassess her symptoms after that she has been instructed to call the office if she has any issues prior to her next appointment. Dr. Hernandez has reviewed this note and agrees with this plan of care. This note was dictated using voice recognition software and may contain errors or omissions Patient has been prescribed a controlled substance after being counseled on the medication, medication safety, and possible side effects. JEFFREY report has been obtained and reviewed prior to prescription and found to be appropriate. Opioid contract was reviewed and signed by the patient, and that they have agreed to all of the terms set forth by our compliance program. [facility] History I have reviewed the patient's past medical history: Yes Medical History: Reports:: Diabetes Mellitus Type 2, Hypertension Denies:: Cancer, Diabetes Mellitus Type 1, MRSA, Seizures *Have you ever received a pneumonia vaccine?: Yes *Have you received a flu vaccine this season?: Yes Other Medical History: Denies: Blood Transfusion Reaction Laterality Cases: Left: Arthroscopy Shoulder, Bilateral: Arthroscopy Knee Other Surgeries: Yes: Amputation: Yes (left bka) - *Social History Smoking Status: Never smoker Alcohol Intake: never *Occupational Status:: other Housing: house Household Members: children *Travel in the last 8 weeks: None Family Hx:: Unable to obtain
[2020-08-27 12:28] VITALS: BP 122/74; PULSE 74; RESP 18; O2SAT 98; BMI 31.4
== END ==
PROVIDERS: Visit Provider Clinical Nurse Specialist Family Health
DX: M51.16 Intervertebral disc disorders with radiculopathy, lumbar region (principal); C78.7 Secondary malignant neoplasm of liver and intrahepatic bile duct; C79.51 Secondary malignant neoplasm of bone
CPT/HCPCS: 99212; G0463

== ENCOUNTER → 2020-10-25 12:08 | Outpatient (POV) | payer BC, SELFPAY ==
--- NOTE | 2020-10-25 12:46 | P.CONS_ITS ---
[facility] Pain Management SOAP Note Subjective:: Patient is a pleasant 60-year-old white female who presents today for follow-up. She is currently being treated for pain secondary to degenerative disc disease lumbar spine lumbar radiculopathy symptoms and metastatic liver carcinoma with mets to the ribs and spine. Patient is undergoing chemotherapy for this at this time. She is having peripheral neuropathy she has had a left leg amputation secondary to osteomyelitis. She is currently on methadone 10 mg 1 p.o. 6 times a day she states it is beneficial she does rate her pain an 8 out of 10 however she had a fall prior to coming into the office today. ROS General: no recent weight change, no fever, no sleep disturbances Respiratory: no cough, no shortness of air, no recurring pulmonary infections Cardiovascular/Peripheral Vascular: No chest pain, No palpitations, no edema, no shortness of breath. Gastrointestinal: no new onset incontinence, normal bowel movements reported Genitourinary: no new onset incontinence Musculoskeletal: Generalized pain, abdominal pain, back pain Psychiatric: normal mood/ affect Neurological: [denies new onset weakness in extremities], [denies new onset balance issues] Objective:: Physical Exam General: Alert and oriented x3, no acute distress, pleasant and cooperative, [on room air] Lungs: Resps E/U, Symmetrical chest expansion, Eyes: PERRL Musculoskeletal: Flexion and extension of lumbar spine somewhat guarded secondary to pain, patient has left leg amputation and right foot is in a boot. Patient utilizes wheelchair for ambulation. Neurological: speech clear, community relations representative equal, no gross sensory deficits Assessment:: Degenerative disc disease lumbar spine lumbar radiculopathy, liver carcinoma with mets to the spine. Plan:: We will continue her methadone 10 mg 1 p.o. 6 times a day. I will see her back in 3 months reassess her symptoms at that time she has been instructed to call the office if she has any issues prior to her next appointment. Dr. Hernandez has reviewed this note and agrees with this plan of care. This note was dictated using voice recognition software and may contain errors or omissions Patient has been prescribed a controlled substance after being counseled on the medication, medication safety, and possible side effects. JEFFREY report has been obtained and reviewed prior to prescription and found to be appropriate. Opioid contract was reviewed and signed by the patient, and that they have agreed to all of the terms set forth by our compliance program. [facility] History I have reviewed the patient's past medical history: Yes Medical History: Reports:: Diabetes Mellitus Type 2, Hypertension Denies:: Cancer, Diabetes Mellitus Type 1, MRSA, Seizures *Have you ever received a pneumonia vaccine?: Yes *Have you received a flu vaccine this season?: Yes Other Medical History: Denies: Blood Transfusion Reaction Laterality Cases: Left: Arthroscopy Shoulder, Bilateral: Arthroscopy Knee Other Surgeries: Yes: Amputation: Yes (left bka) - *Social History Smoking Status: Never smoker Alcohol Intake: never *Occupational Status:: other Housing: house Household Members: children *Travel in the last 8 weeks: None Family Hx:: Unable to obtain
[2020-10-25 12:53] VITALS: BP 134/77; PULSE 90; RESP 18; O2SAT 98; BMI 30.9
== END ==
PROVIDERS: Visit Provider Clinical Nurse Specialist Family Health
DX: M51.16 Intervertebral disc disorders with radiculopathy, lumbar region (principal); C22.7 Other specified carcinomas of liver; C79.51 Secondary malignant neoplasm of bone
CPT/HCPCS: 99212; G0463

== ENCOUNTER → 2021-01-31 13:39 | Outpatient (POV) | payer BC, SELFPAY ==
[2021-01-31 14:05] VITALS: BP 139/77; PULSE 87; RESP 18; O2SAT 98; BMI 32.8
--- NOTE | 2021-02-01 06:47 | HMH.PAINSOAP ---
[facility] Pain Management SOAP Note Subjective:: Patient is a 60-year-old white female who presents today for medication refill and follow-up. Patient is being treated in our clinic due to degenerative disc disease lumbar spine with lumbar radiculopathy symptoms as well as metastatic cancer with mets to ribs and spine. Patient reports today that her cancer has progressed. She has said that she is planning to spend some time and [place] with her family. She and I had a discussion that we will be refilling medications monthly rather than every 2 to 3 months in the clinic now. Patient has requested extension to 2 months with this next refill due to leaving town to spend time with her family. Patient says she feels that her cancer is worsening and she is concerned she has a little time lives with her family. Her pain is an 8 out of 10 today. Her pain is in her right low hip area and into her ribs on the right side. She is managed in the clinic with methadone 10 mg 1 tablet p.o. 6 times daily. Review of Systems General: No recent weight changes, no fever, no sleep disturbances Respiratory: No cough, no shortness of air, no recurring pulmonary infections Cardiovascular/peripheral vascular: No chest pain, no palpitations, no edema, no shortness of breath Gastrointestinal: No new onset incontinence, normal bowel movements reported Genitourinary: No new onset incontinence Musculoskeletal: Right hip pain, rib pain Psychiatric: Normal mood/affect Neurological: [Denies weakness in extremities], [denies balance issues] Objective:: Physical exam General: Alert and oriented x3, no acute distress, pleasant and cooperative, [on room air] Lungs: Respirations even and unlabored, symmetrical chest expansion Eyes: PERRL Musculoskeletal: Flexion and extension of lumbar spine somewhat guarded secondary to pain, tenderness to palpation to rib area and right hip, deep tendon reflexes normal, strength in upper and lower extremities [4/5], [abnormal gait noted] Neurological: Speech clear, bench machine operator equal, no gross sensory deficit Assessment:: Degenerative disc disease lumbar spine with lumbar radiculopathy symptoms, liver cancer with metastatic to ribs and spine Plan:: We will refill the patient's methadone 10 mg 1 tablet p.o. 6 times daily. I have informed the patient that it is at the physician's discretion if 2 months of medication will be provided. The medication is ordered by the physician. We will plan to see her back according to the physician's recommendation. Risks and benefits of the medication have been explained in detail to the patient. The patient has been advised to consult with his/her primary care provider and pharmacist regarding drug-drug interaction of medications currently prescribed. Patient has been prescribed a controlled substance after being counseled on the medication, medication safety, and possible side effects. JEFFREY report has been obtained and reviewed prior to prescription and found to be appropriate. Opioid contract was reviewed and signed by the patient, and that they have agreed to all of the terms set forth by our compliance program. Patient has been instructed to contact the clinic with any concerns before the next appointment. Dr. Hernandez has reviewed this note and agrees with this plan of care. This note was dictated using voice recognition software and make contain errors or omissions. [facility] History I have reviewed the patient's past medical history: Yes Medical History: Reports:: Diabetes Mellitus Type 2, Hypertension Denies:: Cancer, Diabetes Mellitus Type 1, MRSA, Seizures *Have you ever received a pneumonia vaccine?: Yes *Have you received a flu vaccine this season?: Yes Other Medical History: Denies: Blood Transfusion Reaction Laterality Cases: Left: Arthroscopy Shoulder, Bilateral: Arthroscopy Knee Other Surgeries: Yes: Amputation: Yes (left bka) - *Social History Smoking Status: Never smo
== END ==
PROVIDERS: Visit Provider Clinical Nurse Specialist Family Health
DX: M51.16 Intervertebral disc disorders with radiculopathy, lumbar region (principal); C22.9 Malignant neoplasm of liver, not specified as primary or secondary; C79.51 Secondary malignant neoplasm of bone
CPT/HCPCS: 99212; G0463

== ENCOUNTER → 2021-03-28 13:10 | Outpatient (POV) | payer BC, SELFPAY ==
[2021-03-28 13:21] VITALS: BP 143/81; PULSE 85; RESP 18; O2SAT 97; BMI 30.1
--- NOTE | 2021-03-28 14:06 | HMH.PAINSOAP ---
[facility] Pain Management SOAP Note Subjective:: Patient is a 60-year-old white female who presents today for follow-up. The patient is being treated in the clinic for degenerative disc disease lumbar spine with lumbar radiculopathy symptoms. She does get medication in our clinic for her pain which is also secondary to metastatic cancer with mets to ribs and spine. She does say her cancer has progressed. She was recently told that her creatinine has increased significantly. She does have an appointment with nephrology to discuss further plan of care. Her chemotherapy has been placed on hold due to her increased creatinine. She is in the process of relocating to a new home and is currently selling her house. She reports to be undergoing a great deal of stress. She feels this is contributed to worsening pain. Today her pain is a 7 out of 10. She is currently on methadone 10 mg 1 tablet p.o. 6 times daily. This does give her significant relief of her pain up to 60 percent. Her Jeffrey #[id number] has been reviewed and is appropriate. Drug screen is appropriate. She denies any side effects to the medication. Review of Systems General: No recent weight changes, no fever, no sleep disturbances Respiratory: No cough, no shortness of air, no recurring pulmonary infections Cardiovascular/peripheral vascular: No chest pain, no palpitations, no edema, no shortness of breath Gastrointestinal: No new onset incontinence, normal bowel movements reported Genitourinary: No new onset incontinence Musculoskeletal: Low back pain Psychiatric: [Normal mood/affect] Neurological: [Denies weakness in extremities], [denies balance issues] Objective:: Physical exam General: Alert and oriented x3, no acute distress, pleasant and cooperative, Lungs: Respirations even and unlabored, symmetrical chest expansion Eyes: PERRL Musculoskeletal: Flexion and extension of [] lumbar [spine] somewhat guarded secondary to pain, strength in upper and lower extremities [5/5], [antalgic gait noted] Neurological: Speech clear, [acting teacher equal], no gross sensory deficit Assessment:: Degenerative disc disease lumbar lumbar, metastatic cancer with mets to ribs and spine Plan:: We will refill the patient's methadone 10 mg 1 tablet p.o. 6 times daily. We will give the patient a month medication and see her back in the clinic in 1 month for reevaluation of symptoms. Risks and benefits of the medication have been explained in detail to the patient. The patient has been advised to consult with his/her primary care provider and pharmacist regarding drug-drug interaction of medications currently prescribed. Patient has been prescribed a controlled substance after being counseled on the medication, medication safety, and possible side effects. JEFFREY report has been obtained and reviewed prior to prescription and found to be appropriate. Opioid contract was reviewed and signed by the patient, and that they have agreed to all of the terms set forth by our compliance program. Patient has been instructed to contact the clinic with any concerns before the next appointment. Dr. Hernandez has reviewed this note and agrees with this plan of care. This note was dictated using voice recognition software and make contain errors or omissions. [facility] History I have reviewed the patient's past medical history: Yes Medical History: Reports:: Diabetes Mellitus Type 2, Hypertension Denies:: Cancer, Diabetes Mellitus Type 1, MRSA, Seizures *Have you ever received a pneumonia vaccine?: Yes *Have you received a flu vaccine this season?: No Other Medical History: Denies: Blood Transfusion Reaction Laterality Cases: Left: Arthroscopy Shoulder, Bilateral: Arthroscopy Knee Other Surgeries: Yes: Amputation: Yes (left bka) - *Social History Smoking Status: Never smoker Alcohol Intake: never *Occupational Status:: unemployed Housing: house Household Members: children *Travel in the last 8 wee
== END ==
PROVIDERS: Visit Provider Clinical Nurse Specialist Family Health
DX: M51.16 Intervertebral disc disorders with radiculopathy, lumbar region (principal); C22.9 Malignant neoplasm of liver, not specified as primary or secondary; C79.51 Secondary malignant neoplasm of bone
CPT/HCPCS: 99212; G0463

== ENCOUNTER → 2021-05-02 13:49 | Outpatient (POV) | payer BC, SELFPAY ==
--- NOTE | 2021-05-02 14:07 | HMH.VVPMSO ---
[facility] PM Virtual Visit SOAP Consent for virtual visit:: With the recent concerns about the COVID-19, we are trying to minimize exposure to you by shifting to telehealth appointments whenever possible. It restricts me from seeing you in person, but the trade off is protecting you during this pandemic. Can you see and hear me okay, and do you consent to this option? If not, I would be happy to see if we can reschedule your appointment in the future, when feasible. Has patient consented to this virtual visit?: Yes Subjective:: Patient is a 60-year-old white female who is following up via telehealth telephone visit today. She is being treated for degenerative disc disease lumbar spine with lumbar radiculopathy symptoms. She is also treated for metastatic cancer with mets to ribs and spine. Patient is doing well with her medication at this time. She is on methadone 10 mg 1 tablet p.o. 6 times daily. She says her pain is a 5 out of 10 which is baseline for her. She denies any side effects to the medicine. Patient says she is doing well overall. She has not had a recent EKG. Review of Systems General: No recent weight changes, no fever, no sleep disturbances Respiratory: No cough, no shortness of air, no recurring pulmonary infections Cardiovascular/peripheral vascular: No chest pain, no palpitations, no edema, no shortness of breath Gastrointestinal: No new onset incontinence, normal bowel movements reported Genitourinary: No new onset incontinence Musculoskeletal: Low back pain with radiation into lower extremities Psychiatric: [Normal mood/affect] Neurological: [Denies weakness in extremities], [denies balance issues] Objective:: Physical exam General: Alert and oriented x3, Assessment:: Degenerative disc disease lumbar spine with lumbar radiculopathy symptoms, metastatic cancer to ribs and spine Plan:: We will refill the patient's methadone 10 mg 1 tablet p.o. 6 times daily. We will give the patient a month medication and see her back in the clinic in 1 month. At her next visit, the patient will undergo a routine EKG for monitoring secondary to methadone medication. [facility] #[id number] has been reviewed and is appropriate. Drug screen is appropriate. Risks and benefits of the medication have been explained in detail to the patient. The patient has been advised to consult with his/her primary care provider and pharmacist regarding drug-drug interaction of medications currently prescribed. Patient has been prescribed a controlled substance after being counseled on the medication, medication safety, and possible side effects. JEFFREY report has been obtained and reviewed prior to prescription and found to be appropriate. Opioid contract was reviewed and signed by the patient, and that they have agreed to all of the terms set forth by our compliance program. Patient has been instructed to contact the clinic with any concerns before the next appointment. Dr. Hernandez has reviewed this note and agrees with this plan of care. This note was dictated using voice recognition software and make contain errors or omissions. Time In:: 14:00 Time Out:: 14:10 [facility] History I have reviewed the patient's past medical history: Yes Medical History: Reports:: Diabetes Mellitus Type 2, Hypertension Denies:: Cancer, Diabetes Mellitus Type 1, MRSA, Seizures *Have you ever received a pneumonia vaccine?: Yes *Have you received a flu vaccine this season?: No Other Medical History: Denies: Blood Transfusion Reaction Laterality Cases: Left: Arthroscopy Shoulder, Bilateral: Arthroscopy Knee Other Surgeries: Yes: Amputation: Yes (left bka) - *Social History Smoking Status: Never smoker Alcohol Intake: never *Occupational Status:: unemployed Housing: house Household Members: children *Travel in the last 8 weeks: None Family Hx:: Unable to obtain
== END ==
PROVIDERS: Visit Provider Clinical Nurse Specialist Family Health
DX: M51.16 Intervertebral disc disorders with radiculopathy, lumbar region (principal); C79.51 Secondary malignant neoplasm of bone
CPT/HCPCS: 99212; G0463